=== PATIENT | female | born 1990 | race Caucasian/White ===

== ENCOUNTER 2017-12-25 18:53 | Inpatient (IN) | payer MEDICAID, OTHER ==
[2017-12-25] MEDS: ONDANSETRON 4 MG INJ IV (21:18)
[2017-12-25] MEDS: PANTOPRAZOLE 40 MG INJ IV (21:18)
[2017-12-25] MEDS: SOD CHLORIDE 0.9% 1,000 ML IV (21:18)
[2017-12-25 21:37] LABS: URINE BLOOD (Dip) POC Negative (NEGATIVE); URINE GLUCOSE (Dip) POC Negative (NEGATIVE); URINE KETONES (Dip) POC Negative (NEGATIVE); URINE LEUKOCYTE EST (Dip) POC Negative (NEGATIVE); URINE NITRITE (Dip) POC Negative (NEGATIVE); URINE TOTAL PROTEIN POC Negative (NEGATIVE)
[2017-12-25 22:23] LABS: WHITE BLOOD COUNT 6.8 10^3/ul (4.8-10.8)
[2017-12-25 22:23] LABS: ABNORMAL IP MESSAGE 1; HEMATOCRIT 25.2 % (37.0-47.0); MEAN CORPUSCULAR HEMOGLOBIN 15.4 pg (29.0-33.0); MEAN CORPUSCULAR HGB CONC 26.2 g/dl (32.0-37.0); MEAN CORPUSCULAR VOLUME 58.7 fl (82.0-101.0); RED BLOOD COUNT 4.29 10^6/ul (4.20-5.40)
[2017-12-25 22:27] LABS: ADD MAN DIFF? YES; HEMOGLOBIN 6.6 g/dl (12.0-16.0); POSITIVE DIFF @See below
[2017-12-25 22:33] LABS: PATH REVIEW Y
[2017-12-25 22:40] LABS: ALANINE AMINOTRANSFERASE 23 IU/L (13-69); ALBUMIN 4.4 g/dl (3.3-4.9); ALBUMIN/GLOBULIN RATIO 1.46; ALKALINE PHOSPHATASE 80 IU/L (42-121); ANION GAP 12 (8-16); ASPARTATE AMINO TRANSFERASE 15 IU/L (15-46); BILIRUBIN,INDIRECT 0.1 mg/dl (0-1.1); BILIRUBIN,TOTAL 0.1 mg/dl (0.2-1.3); BLOOD UREA NITROGEN 9 mg/dl (7-20); CALCIUM 8.8 mg/dl (8.4-10.2); CARBON DIOXIDE 29 mmol/L (21-31); CHLORIDE 104 mmol/L (97-110); CREATININE 0.45 mg/dl (0.44-1.00); GLUCOSE 95 mg/dl (70-220); LIPASE 129 U/L (23-300); POTASSIUM 3.1 mmol/L (3.5-5.1); SODIUM 142 mmol/L (135-144); TOTAL PROTEIN 7.4 g/dl (6.1-8.1)
[2017-12-25 22:46] LABS: PLATELET COUNT 153 10^3/UL (140-415)
[2017-12-25 22:48] LABS: ANISOCYTOSIS 3+ (0-0); EOSINOPHILS % (M) 5 % (0-7); ERYTHROBLAST% (NRBC) (M) 2 % (0-0); GIANT THROMBO% (M) 15 % (0-0); HYPOCHROMASIA 2+ (0-0); LYMPHOCYTES #M 1.4 10^3/ul (0.8-2.9); LYMPHOCYTES % (M) 21 % (15-51); MICROCYTOSIS 3+ (0-0); MONOCYTE #M 0.3 10^3/ul (0.3-0.9); MONOCYTES % (M) 5 % (0-11); PLATELET ESTIMATE NORMAL; POIKILOCYTOSIS 2+ (0-0); POLYCHROMASIA 2+ (0-0); SEGMENTED NEUTROPHILS (M) % 69 % (39-77); SMUDGE%M 5 % (0-0)
[2017-12-25 22:55] LABS: INR 1.08; PARTIAL THROMBOPLASTIN TIME 31.4 Sec (25.0-35.0); PROTIME 14.1 Sec (11.9-14.9); PT RATIO 1.1
[2017-12-26] MEDS ORDERED: SOD CHLORIDE 0.9% 1,000 ML IV (01:06)
[2017-12-26] MEDS ORDERED: morphine 2 MG INJ IV (01:30)
[2017-12-26] MEDS ORDERED: ACETAMINOPHEN 325 MG TAB PO (01:30)
[2017-12-26] MEDS ORDERED: NACL 0.9% 3 ML SYG IV (01:30)
[2017-12-26] MEDS ORDERED: ONDANSETRON 4 MG INJ IV (01:30)
[2017-12-26] MEDS: POTASSIUM CHLORIDE 40 MEQ in SOD CHLORIDE 0.9% 1,000 ML IV (08:06)
[2017-12-26] MEDS: POTASSIUM CHLORIDE (SR) 20 MEQ TAB PO (12:16)
[2017-12-26 12:24] LABS: ADD MAN DIFF? NO
[2017-12-26 12:29] LABS: ABNORMAL IP MESSAGE 1; BASOPHILS % 0.2 % (0.0-2.0); EOSINOPHILS # 0.2 10^3/ul (0.0-0.5); EOSINOPHILS % 3.5 % (0.0-7.0); HEMATOCRIT 31.6 % (37.0-47.0); LYMPHOCYTES # 1.3 10^3/ul (0.8-2.9); LYMPHOCYTES % 27.8 % (15.0-51.0); MEAN CORPUSCULAR HEMOGLOBIN 18.3 pg (29.0-33.0); MEAN CORPUSCULAR HGB CONC 28.5 g/dl (32.0-37.0); MEAN CORPUSCULAR VOLUME 64.2 fl (82.0-101.0); MONOCYTE # 0.4 10^3/ul (0.3-0.9); MONOCYTES % 8.8 % (0.0-11.0); NEUTROPHIL # 2.9 10^3/ul (1.6-7.5); NEUTROPHILS % 59.5 % (39.0-77.0); PLATELET COUNT 138 10^3/UL (140-415); RED BLOOD COUNT 4.92 10^6/ul (4.20-5.40); RED CELL DISTRIBUTION WIDTH 25.4 % (11.5-14.5)
[2017-12-26 12:29] LABS: WHITE BLOOD COUNT 4.8 10^3/ul (4.8-10.8)
[2017-12-26 12:37] LABS: POSITIVE DIFF @See below
[2017-12-26 12:42] LABS: HEMOGLOBIN A1C 5.1 % (0-5.9)
[2017-12-26 12:45] LABS: IRON 29 ug/dl (35-150)
[2017-12-26 12:47] LABS: CHOLESTEROL 134 mg/dl (100-200)
[2017-12-26 12:47] LABS: CHOL/HDL RATIO 3.1 RATIO; HDL CHOLESTEROL 42 mg/dl (33-83); LDL CHOLESTEROL,CALCULATED 75 mg/dl; TRIGLYCERIDES 84 mg/dl (0-149)
[2017-12-26 12:49] LABS: LACTIC ACID 0.7 mmol/L (0.5-2.0)
[2017-12-26 12:49] LABS: ALANINE AMINOTRANSFERASE 26 IU/L (13-69); ALBUMIN 4.1 g/dl (3.3-4.9); ALBUMIN/GLOBULIN RATIO 1.32; ALKALINE PHOSPHATASE 72 IU/L (42-121); ANION GAP 14 (8-16); ASPARTATE AMINO TRANSFERASE 16 IU/L (15-46); BILIRUBIN,INDIRECT 0.7 mg/dl (0-1.1); BILIRUBIN,TOTAL 0.7 mg/dl (0.2-1.3); BLOOD UREA NITROGEN 5 mg/dl (7-20); CALCIUM 8.8 mg/dl (8.4-10.2); CARBON DIOXIDE 27 mmol/L (21-31); CHLORIDE 106 mmol/L (97-110); CREATININE 0.43 mg/dl (0.44-1.00); GLUCOSE 93 mg/dl (70-220); POTASSIUM 3.9 mmol/L (3.5-5.1); SODIUM 143 mmol/L (135-144); TOTAL PROTEIN 7.2 g/dl (6.1-8.1)
[2017-12-26 12:50] LABS: MAGNESIUM 2.2 mg/dl (1.7-2.5)
[2017-12-26 12:55] LABS: % IRON SATURATION 7 % SAT (22-52); TOTAL IRON BINDING CAPACITY 390 ug/dl (241-421)
[2017-12-26 13:19] LABS: THYROID STIMULATING HORMONE 0.991 MIU/L (0.465-4.680)
[2017-12-26 17:22] LABS: ADD MAN DIFF? NO
[2017-12-26 17:26] LABS: ABNORMAL IP MESSAGE 1; BASOPHILS % 0.2 % (0.0-2.0); EOSINOPHILS # 0.2 10^3/ul (0.0-0.5); EOSINOPHILS % 3.6 % (0.0-7.0); HEMATOCRIT 33.9 % (37.0-47.0); HEMOGLOBIN 9.6 g/dl (12.0-16.0); LYMPHOCYTES # 1.5 10^3/ul (0.8-2.9); LYMPHOCYTES % 26.9 % (15.0-51.0); MEAN CORPUSCULAR HEMOGLOBIN 18.2 pg (29.0-33.0); MEAN CORPUSCULAR HGB CONC 28.3 g/dl (32.0-37.0); MEAN CORPUSCULAR VOLUME 64.2 fl (82.0-101.0); MONOCYTE # 0.4 10^3/ul (0.3-0.9); MONOCYTES % 7.5 % (0.0-11.0); NEUTROPHIL # 3.4 10^3/ul (1.6-7.5); NEUTROPHILS % 61.6 % (39.0-77.0); PLATELET COUNT 132 10^3/UL (140-415); RED BLOOD COUNT 5.28 10^6/ul (4.20-5.40); RED CELL DISTRIBUTION WIDTH 25.6 % (11.5-14.5)
[2017-12-26 17:26] LABS: WHITE BLOOD COUNT 5.6 10^3/ul (4.8-10.8)
[2017-12-26 17:32] LABS: POSITIVE DIFF @See below
[2017-12-26] MEDS: SOD FERRIC GLUC COMPLX 125 MG in SOD CHLORIDE 0.9% 100 ML IVPB (17:38)
[2017-12-26] MEDS: PEG/ELECTROLYTES 4L BTL PO (22:09)
[2017-12-26] MEDS: IOHEXOL 300MG/ML 150 ML BTL (22:20)
[2017-12-26] MEDS: SOD CHLORIDE 0.9% 100 ML (22:20)
[2017-12-26 23:27] LABS: ADD MAN DIFF? NO
[2017-12-26 23:32] LABS: WHITE BLOOD COUNT 5.8 10^3/ul (4.8-10.8)
[2017-12-26 23:32] LABS: ABNORMAL IP MESSAGE 1; BASOPHILS % 0.3 % (0.0-2.0); EOSINOPHILS # 0.2 10^3/ul (0.0-0.5); EOSINOPHILS % 3.1 % (0.0-7.0); HEMATOCRIT 32.6 % (37.0-47.0); HEMOGLOBIN 9.2 g/dl (12.0-16.0); LYMPHOCYTES # 1.3 10^3/ul (0.8-2.9); LYMPHOCYTES % 22.5 % (15.0-51.0); MEAN CORPUSCULAR HEMOGLOBIN 17.9 pg (29.0-33.0); MEAN CORPUSCULAR HGB CONC 28.2 g/dl (32.0-37.0); MEAN CORPUSCULAR VOLUME 63.3 fl (82.0-101.0); MONOCYTE # 0.4 10^3/ul (0.3-0.9); MONOCYTES % 7.2 % (0.0-11.0); NEUTROPHIL # 3.9 10^3/ul (1.6-7.5); NEUTROPHILS % 66.6 % (39.0-77.0); PLATELET COUNT 143 10^3/UL (140-415); RED BLOOD COUNT 5.15 10^6/ul (4.20-5.40); RED CELL DISTRIBUTION WIDTH 26.5 % (11.5-14.5)
[2017-12-27 00:10] LABS: POSITIVE DIFF @See below
[2017-12-27] MEDS: POTASSIUM CHLORIDE 30 MEQ in SOD CHLORIDE 0.9% 250 ML IVPB (07:22)
[2017-12-27] MEDS: MAGNESIUM CITRATE 300 ML BTL PO (08:25)
[2017-12-27] MEDS: FAMOTIDINE 20 MG INJ IV ×2 (09:50→21:07)
[2017-12-27] MEDS: SOD FERRIC GLUC COMPLX 125 MG in SOD CHLORIDE 0.9% 100 ML IVPB (19:08)
[2017-12-27] MEDS: PROPOFOL 40 ML (22:20)
[2017-12-27] MEDS: LIDOCAINE 2% (SDV) 5 ML INJ (22:20)
[2017-12-28 05:52] LABS: ADD MAN DIFF? NO
[2017-12-28 05:53] LABS: WHITE BLOOD COUNT 5.6 10^3/ul (4.8-10.8)
[2017-12-28 05:54] LABS: ABNORMAL IP MESSAGE 1; BASOPHILS % 0.2 % (0.0-2.0); EOSINOPHILS # 0.1 10^3/ul (0.0-0.5); EOSINOPHILS % 2.3 % (0.0-7.0); HEMATOCRIT 29.2 % (37.0-47.0); HEMOGLOBIN 8.3 g/dl (12.0-16.0); LYMPHOCYTES # 1.2 10^3/ul (0.8-2.9); LYMPHOCYTES % 22.3 % (15.0-51.0); MEAN CORPUSCULAR HEMOGLOBIN 18.1 pg (29.0-33.0); MEAN CORPUSCULAR HGB CONC 28.4 g/dl (32.0-37.0); MEAN CORPUSCULAR VOLUME 63.8 fl (82.0-101.0); MONOCYTE # 0.6 10^3/ul (0.3-0.9); MONOCYTES % 10.1 % (0.0-11.0); NEUTROPHIL # 3.6 10^3/ul (1.6-7.5); NEUTROPHILS % 64.9 % (39.0-77.0); PLATELET COUNT 153 10^3/UL (140-415); RED BLOOD COUNT 4.58 10^6/ul (4.20-5.40)
[2017-12-28 05:55] LABS: POSITIVE DIFF @See below
[2017-12-28 06:28] LABS: ANION GAP 16 (8-16); BLOOD UREA NITROGEN 8 mg/dl (7-20); CALCIUM 8.8 mg/dl (8.4-10.2); CARBON DIOXIDE 24 mmol/L (21-31); CHLORIDE 106 mmol/L (97-110); CREATININE 0.48 mg/dl (0.44-1.00); GLUCOSE 82 mg/dl (70-220); MAGNESIUM 2.2 mg/dl (1.7-2.5); POTASSIUM 3.5 mmol/L (3.5-5.1); SODIUM 142 mmol/L (135-144)
[2017-12-28] MEDS: FAMOTIDINE 20 MG INJ IV (08:44)
[2017-12-28] MEDS: SOD CHLORIDE 0.9% 250 ML IV* (16:03)
[2017-12-28] MEDS: SOD FERRIC GLUC COMPLX 125 MG in SOD CHLORIDE 0.9% 100 ML IVPB (16:50)
[2017-12-28] MEDS: PANTOPRAZOLE (EC) 40 MG TAB PO (17:25)
[2017-12-28 18:07] LABS: IMMEDIATE SPIN CROSSMATCH 1 3
[2017-12-28] MEDS: AMOXICILLIN 500 MG CAP PO (20:31)
[2017-12-28] MEDS: CLARITHROMYCIN 500 MG TAB PO (20:31)
[2017-12-29 05:45] LABS: ADD MAN DIFF? NO
[2017-12-29 05:49] LABS: ABNORMAL IP MESSAGE 1; BASOPHILS % 0.3 % (0.0-2.0); EOSINOPHILS # 0.2 10^3/ul (0.0-0.5); EOSINOPHILS % 2.7 % (0.0-7.0); HEMATOCRIT 35.6 % (37.0-47.0); HEMOGLOBIN 10.5 g/dl (12.0-16.0); LYMPHOCYTES # 1.3 10^3/ul (0.8-2.9); LYMPHOCYTES % 21.5 % (15.0-51.0); MEAN CORPUSCULAR HEMOGLOBIN 19.4 pg (29.0-33.0); MEAN CORPUSCULAR HGB CONC 29.5 g/dl (32.0-37.0); MEAN CORPUSCULAR VOLUME 65.8 fl (82.0-101.0); MONOCYTE # 0.6 10^3/ul (0.3-0.9); MONOCYTES % 10.7 % (0.0-11.0); NEUTROPHIL # 3.8 10^3/ul (1.6-7.5); NEUTROPHILS % 64.5 % (39.0-77.0); PLATELET COUNT 163 10^3/UL (140-415); RED BLOOD COUNT 5.41 10^6/ul (4.20-5.40); RED CELL DISTRIBUTION WIDTH 29.3 % (11.5-14.5)
[2017-12-29] MEDS: PANTOPRAZOLE (EC) 40 MG TAB PO (05:55)
[2017-12-29 06:11] LABS: ANION GAP 14 (8-16); BLOOD UREA NITROGEN 8 mg/dl (7-20); CARBON DIOXIDE 26 mmol/L (21-31); CHLORIDE 106 mmol/L (97-110); CREATININE 0.52 mg/dl (0.44-1.00); GLUCOSE 92 mg/dl (70-220); POTASSIUM 3.4 mmol/L (3.5-5.1); SODIUM 143 mmol/L (135-144)
[2017-12-29 06:15] LABS: POSITIVE DIFF @See below
[2017-12-29] MEDS: CLARITHROMYCIN 500 MG TAB PO (08:15)
[2017-12-29] MEDS: AMOXICILLIN 500 MG CAP PO (08:15)
== END 2017-12-29 11:23 | disposition home or self-care (01) | DRG 393 ==
LOC: MS1 12-26 01:05 → FTE 18:53
PROC: 0DBN8ZZ Excision of Sigmoid Colon, Via Natural or Artificial Opening Endoscopic (ICD-10-PCS; principal; 2017-12-27 17:25)
PROC: 0DBE8ZX Excision of Large Intestine, Via Natural or Artificial Opening Endoscopic, Diagnostic (ICD-10-PCS; 2017-12-27 17:25)
PROC: 0DB78ZX Excision of Stomach, Pylorus, Via Natural or Artificial Opening Endoscopic, Diagnostic (ICD-10-PCS; 2017-12-27 17:25)
PROC: 30233N1 Transfusion of Nonautologous Red Blood Cells into Peripheral Vein, Percutaneous Approach (ICD-10-PCS; 2017-12-27 17:25)
DX: D12.5 Benign neoplasm of sigmoid colon (principal); K29.51 Unspecified chronic gastritis with bleeding; D64.9 Anemia, unspecified; E87.6 Hypokalemia; B96.81 Helicobacter pylori [H. pylori] as the cause of diseases classified elsewhere; N92.0 Excessive and frequent menstruation with regular cycle
CPT/HCPCS: 36430; 74176; 76775; 76856; 80048; 80053; 80061; 81003; 81025; 82728; 83036; 83540; 83605; 83690; 83735; 84132; 84443; 85025; 85610; 85730; 86850; 86900; 86901; 86920; 88305; 88312

== ENCOUNTER 2018-05-28 22:49 | Outpatient (CLI) | payer OTHER | END 2018-05-29 02:20 | disposition home or self-care (01) | LOC: OBT 22:49 → L-D 22:51 | DX: O26.852 Spotting complicating pregnancy, second trimester (principal); Z3A.20 20 weeks gestation of pregnancy | CPT/HCPCS: 76815; 76817 ==

== ENCOUNTER 2019-04-17 03:00 | Outpatient (CLI) | payer OTHER ==
[2019-04-17 05:59] LABS: ADD UMIC YES; UR ASCORBIC ACID NEGATIVE (NEGATIVE); UR BILIRUBIN (Dip) NEGATIVE (NEGATIVE); UR BLOOD (Dip) NEGATIVE (NEGATIVE); UR CLARITY CLEAR (CLEAR); UR COLOR YELLOW (YELLOW); UR GLUCOSE (Dip) NEGATIVE (NEGATIVE); UR KETONES (Dip) NEGATIVE (NEGATIVE); UR LEUKOCYTE ESTERASE (Dip) TRACE Leu/ul (NEGATIVE); UR MUCUS FEW /HPF (NONE SEEN); UR NITRITE (Dip) NEGATIVE (NEGATIVE); UR RBC 0 /HPF (0-5); UR SPECIFIC GRAVITY (Dip) 1.011 (1.003-1.030); UR TOTAL PROTEIN (Dip) NEGATIVE (NEGATIVE); UR UROBILINOGEN (Dip) NEGATIVE (NEGATIVE); UR WBC 1 /HPF (0-5)
[2019-04-17] MEDS: TERBUTALINE 1 MG/ML INJ SC (06:01)
== END 2019-04-17 07:16 | disposition home or self-care (01) ==
LOC: OBT 03:00 → L-D 03:00 → OBT 07:16
DX: O36.8120 Decreased fetal movements, second trimester, not applicable or unspecified (principal); Z3A.20 20 weeks gestation of pregnancy
CPT/HCPCS: 81001